=== PATIENT | female | born 1950 | race Caucasian/White ===

== ENCOUNTER 2025-03-15 23:37 | Inpatient (IN) ==
--- NOTE | 2025-03-16 00:16 | Emergency Department Note ---
Impression & Plan Gross hematuria ED Provider Note HISTORY OF PRESENT ILLNESS: Patient is a 74-year-old female presenting with gross hematuria. Patient had a transurethral bladder mass resection performed with urology on 03/15/2025. She reports that mid afternoon she started to have some blood-tinged urine. Reports that throughout the evening, she has had significant spasms in her suprapubic region and has been getting up to urinate every 15 minutes. She states that she has been urinating bright red and dark blood for the last few hours. Denies any lightheadedness or dizziness. Denies any chest pain or shortness of breath. She reports her urethra is very uncomfortable and painful. She is not on any anticoagulation or antiplatelet therapies. She reports she got very nervous after she continued to to urinate blood every 15 minutes. ROS: as above PHYSICAL EXAM: Constitutional: Patient appears in no acute distress. HENT: Head: Normocephalic and atraumatic. Eyes: EOMI, PERRL Mouth/Throat: Mucous membranes moist. Neck: Trachea midline. Neck supple. Cardiovascular: RRR, No murmurs, rubs or gallops. Intact distal pulses. Pulmonary/Chest: No respiratory distress. Breath sounds clear and equal bilaterally. No wheezes or rales. Abdominal: Abdomen soft, no tenderness, rebound or guarding. Musculoskeletal: No edema, tenderness or deformity noted. Skin: Warm and dry. No rash, erythema, pallor or cyanosis Psychiatric: Appropriate mood and affect for situation. Neurological: Alert and keenly responsive. CN II-XII grossly intact, moving all extremities equally and fully. MDM: - Vitals signs showed hypertension and tachycardia - History obtained via patient. History as above. - Chronic conditions affecting care: HTN; hypothyroidism; GERD; bladder tumor - Differential diagnoses include, but are not limited to: UTI; postoperative bleeding; ureteral stone; coagulopathy - Order placed for continuous cardiac monitoring. At this time, monitor showed rate of 83 bpm with normal sinus rhythm, per my interpretation. - External medical records reviewed. Operative note dated 03/15/2025 was reviewed. Patient had a transurethral section of a bladder tumor for malignant neoplasm of the bladder. - Did reach out to urologist on-call, Dr. Espinoza, at 01:00 on 03/16/2025. He responded at 01:34 and recommended that the three-way Lino be placed with gentle continuous bladder irrigation. Also requested that an ultrasound of the bladder be performed to ensure that there is not a large clot burden in the bladder. -Patient was given 2 mg IV morphine for pain control prior to Lino insertion. A 20 cymro three-way Lino catheter was placed by nursing staff and continuous bladder irrigation was performed. Initially had gross hematuria, but as the irrigation continued, the output from the Lino catheter is now a light pink- tinged color. - Laboratory workup interpreted by myself showed leukocytosis (WBC 20.20) with neutrophil predominance; PT/INR; slight hyponatremia (Na 134); normal lipase; anemia (Hgb 11.5 - down from 12.6 nine days ago) - UA showed significant amounts of blood and WBCs. Given patient's leukocytosis and hematuria, will empirically treat with IV Rocephin. - Type and screen obtained- - Renal and bladder ultrasound was obtained. - Discussion was had with caseworker protective services about patient's case and need for admission - Hospitalist consulted for admission [facility] ASSESSMENT AND PLAN: Diagnosis: Gross hematuria Plan: Admit Past Med/Surg History Problem List (Updated 03/16/25 @ 02:33 by Lizzeth Diane MD) Gross hematuria (Acute) Primary bladder malignant neoplasm Hematuria Osteoporosis Encounter for pre-operative examination History of melanoma Knee osteoarthritis GERD (gastroesophageal reflux disease) Anxiety Hypothyroidism Lumbar spinal stenosis Hypertension Medical History (Updated 03/16/25 @ 02:33 by Lizzeth Diane MD) Bladder tumor Arthritis Seasonal allergies Lumbar spinal stenosis History of melanoma Hypothyroidism Anxiety Hypertension GERD (gastroesophageal reflux disease) Surgical History H/O cystoscopy History of tonsillectomy History of tooth extraction Hx of melanoma excision History of esophagogastroduodenoscopy (EGD) Hx of colonoscopy Hx of foot surgery Right foot (D/t plantar fasciitis) Hx of Achilles tendon repair (2013) x3 (D/t rupture) 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) UJEANIE/Roman Ac History of left knee replacement (2020) H/O rotator cuff surgery Right H/O: hysterectomy Family History Father Anxiety Depression Hypertension Brother Diabetes Lung cancer Lung disease Hypertension Mother Lung cancer Other No family history of adverse response to anesthesia Social History Smoking Status: Former smoker Tobacco Type: Cigarettes Age Started Using Tobacco: 18; Age Quit Using Tobacco: 22; packs per day: 0.5; Second Hand Exposure: Yes (as a child); Do You Dip or Chew Tobacco: No; Hx Alcohol Use: No Preferred Language: Bruneian Communication Ability: Effective Soc Analyst Required: No Beliefs That Will Affect Care: None marital status: Current Living Situation: Spouse current occupational status: employed and retired How many Children do You have: 3 Feels Safe at Home: Yes Childhood Exposure to Second-Hand Smoke: Yes Diet: regular caffeine: Yes Dental Care, Regularly: Yes Physical Activity Frequency: 1-2 Times per Week Seatbelt Use: always Sunscreen Use: Yes Assistive Devices: Contacts and Glasses Allergies Allergies Allergy/AdvReac Type Severity Reaction Status Date / Time nickel AdvReac Mild Rash Verified 03/15/25 06:12 Home Meds Home Medications Medication Instructions Recorded Confirmed cetirizine 10 mg tablet (Aller-Kirk) 10 mg PO DAILY PRN allergies 12/04/23 03/15/25 ibuprofen 200 mg tablet 800 mg PO Q6H PRN Pain 05/26/24 03/15/25 calcium 600 mg (as 1 tab PO QAM 03/07/25 03/15/25 carbonate)-vitamin D3 5 mcg (200 unit) tablet duloxetine 60 mg capsule,delayed 60 mg PO QAM 03/07/25 03/15/25 release trazodone 50 mg tablet 50 mg PO HS PRN Sleep 03/07/25 03/15/25 vit A 7,160 unit-vit C 113 mg-vit 1 tab PO QAM 03/07/25 03/15/25 E 100 [id number]-bzdi-[id number] tablet Previous Rx's Medication Instructions Recorded lisinopril 20 mg tablet 20 mg PO QAM 90 days #90 tabs 08/25/24 levothyroxine 100 mcg tablet 100 mcg PO QAM #90 tabs 08/30/24 omeprazole 10 mg capsule,delayed 10 mg PO QAM 90 days #90 caps 02/15/25 release phenazopyridine 200 mg tablet 200 mg PO Q8H 6 doses #15 tabs 03/15/25 (Pyridium) sulfamethoxazole 800 1 tab PO BID #5 tabs 03/15/25 mg-trimethoprim 160 mg tablet (Bactrim DS) Results & Data (ED) Vital Signs Vital Signs - 24 hr 03/15/25 23:44 03/16/25 00:22 03/16/25 01:24 Temperature 37.1 C Temperature Source Oral Pulse Rate 116 H 97 H Pulse Rate [Apical] 83 Respiratory Rate 22 18 Respiratory Effort / Characteristics Non-Labored Spontaneous Respiratory Depth Normal Normal Blood Pressure 168/79 H Blood Pressure [Left Arm] 144/72 H Blood Pressure Mean 108 Blood Pressure Mean [Left Arm] 96 Pulse Oximetry 95 93 Oxygen Delivery Method Room Air Room Air Sepsis Recent Fever Within 48 Hours No Sepsis New/Unexplained Change in Mental Status No Sepsis Action Taken by Nursing No Action Required Laboratory Data 03/16/25 00:04 03/16/25 00:04 Lab Results 03/16/25 03/16/25 Range/Units 00:04 00:05 WBC 20.20 H (4.8-10.8) K/ul RBC 4.28 (4.20-5.40) M/uL Hgb 11.5 L (12.0-16.0) g/dl Hct 35.1 L (37.0-47.0) % MCV 82.0 (80.0-100.0) fL MCH 26.9 (25.0-34.0) pg MCHC 32.8 (32.0-36.0) g/dL RDW Std Deviation 41.7 (36.4-46.3) fL RDW Coeff of [place] 14.1 (11.5-14.5) % Plt Count 330 (130-400) K/uL MPV 11.4 (9.4-12.4) fL Immature Gran % (Auto) 0.8 % Neut % (Auto) 86.6 % Lymph % (Auto) 8.8 % [place] % (Auto) 3.7 % Eos % (Auto) 0.0 % Baso % (Auto) 0.1 % Neut # (Auto) 17.50 H (1.40-6.50) K/uL Lymph # (Auto) 1.77 (1.20-3.40) K/uL [place] # (Auto) 0.74 H (0.11-0.59) K/uL Eos # (Auto) 0.00 (0.00-0.50) K/uL Baso # (Auto) 0.02 (0.00-0.20) K/uL Immature Gran # (Auto) 0.17 (0.01-0.20) K/uL PT 10.9 (9.0-12.0) Seconds INR 1.0 (0.9-1.1) Sodium 134 L (136-145) mmol/L Potassium 3.8 (3.5-5.1) mmol/L Chloride 103 (98-107) mmol/L Carbon Dioxide 20 L (21-32) mmol/L Anion Gap 11 (3-11) BUN 17 (6-23) mg/dl Creatinine 0.91 (0.6-1.2) mg/dl Est Cr Clr Drug Dosing 60.1 ml/min eGFR 66.20 BUN/Creatinine Ratio 18.7 (10-20) Glucose 160 H (70-99(Fasting)) mg/dl Calcium 8.5 L (8.6-10.3) mg/dl Total Bilirubin 0.4 (0.2-1.0) mg/dl AST 45 H (13-39) U/L ALT 32 (7-52) U/L Alkaline Phosphatase 62 (34-104) U/L Total Protein 6.2 (6.0-8.3) gm/dl Albumin 3.8 (3.4-5.0) gm/dl Globulin 2.4 L (2.5-4.0) gm/dl Albumin/Globulin Ratio 1.6 (0.9-2) Lipase 10 L (11-82) U/L Urine Color See Comment Urine Appearance Turbid A (Clear) Urine pH Not Reportable Ur Specific [place] 1.025 (1.000-1.030) Urine Protein Not Reportable Urine Glucose (UA) Not Reportable Urine Ketones Not Reportable Urine Blood Not Reportable Urine Nitrite Not Reportable Urine Bilirubin Not Reportable Urine Urobilinogen Not Reportable Ur Leukocyte Esterase Not Reportable Urine RBC >20 H (0-2) /hpf Urine WBC 11-20 H (0-5) /hpf Ur Epithelial Cells 0-2 (0-2) /hpf Urine Bacteria None Seen (None Seen) Urine Comment Blood Type A Positive Antibody Screen NEGATIVE Administered Medications Discontinued Medications Ceftriaxone Sodium (Rocephin) 2,000 mg in 50 mls @ 100 mls/hr IV NOW STA Stop: 03/16/25 01:54 Last Infusion: 03/16/25 02:54 Dose: Infused Documented By: Admin: 03/16/25 02:06 Dose: 100 mls/hr Documented By: JEANETTE Morphine Sulfate (Morphine Sulfate 2 Mg/Ml Carp) 2 mg IV NOW STA Stop: 03/16/25 00:38 Last Admin: 03/16/25 01:04 Dose: 2 mg Documented By: JEANETTE Discharge Plan Visit Data Chief Complaint: Bleeding Stated Complaint: BLEEDING AFTER BLADDER SURG TODAY ED Provider: Lizzeth Diane Discharge Problem: Gross hematuria Condition: Fair Forms Stand Alone Forms: My [facility] Jump Prescriptions Prescriptions: No Action lisinopril 20 mg tablet 20 mg PO QAM 90 Days Qty: 90 3RF levothyroxine 100 mcg tablet 100 mcg PO QAM Qty: 90 3RF omeprazole 10 mg capsule,delayed release(DR/EC) 10 mg PO QAM 90 Days Qty: 90 1RF cetirizine [Aller-Kirk] 10 mg tablet 10 mg PO DAILY PRN (Reason: allergies) ibuprofen 200 mg Tablet 800 mg PO Q6H PRN (Reason: Pain) calcium carbonate-vitamin D3 600 mg-5 mcg (200 unit) Tablet 1 tab PO QAM vit A-vit C-vit S-vbsa-ndofte 7,160-113-100 njqz-fv-gutz Tablet 1 tab PO QAM duloxetine 60 mg capsule,delayed release(DR/EC) 60 mg PO QAM trazodone 50 mg Tablet 50 mg PO HS PRN (Reason: Sleep) sulfamethoxazole-trimethoprim [Bactrim DS] 800-160 mg tablet 1 tab PO BID Qty: 5 0RF phenazopyridine [Pyridium] 200 mg tablet 200 mg PO Q8H 0 Days Qty: 15 0RF Referrals Referrals: Charlene Ruiz MD [Primary Care Provider] -
[2025-03-16 00:35] LABS: Hematocrit (blood only) 35.1 % (37.0-47.0); Hemoglobin 11.5 g/dl (12.0-16.0); Immature Granulocytes # (auto) 0.17 K/uL (0.01-0.20); Immature Granulocytes % (auto) 0.8 %; Mean Corpuscular Hemoglobin 26.9 pg (25.0-34.0); Mean Corpuscular Volume 82.0 fL (80.0-100.0); Platelet Count 330 K/uL (130-400); RDW Standard Deviation 41.7 fL (36.4-46.3); Red Blood Count 4.28 M/uL (4.20-5.40); White Blood Count 20.20 K/ul (4.8-10.8)
[2025-03-16 00:52] LABS: Alanine Aminotransferase 32.0 U/L (7-52); Albumin Globulin Ratio 1.6 (0.9-2); Albumin Level 3.8 gm/dl (3.4-5.0); Alkaline Phosphatase 62.0 U/L (34-104); Anion Gap 11.0 (3-11); Bilirubin,Total 0.4 mg/dl (0.2-1.0); Blood Urea Nitrogen 17.0 mg/dl (6-23); Calcium 8.5 mg/dl (8.6-10.3); Carbon Dioxide 20.0 mmol/L (21-32); Chloride 103.0 mmol/L (98-107); Creatinine Clr Calc Pharmacy 60.1 ml/min; Globulin 2.4 gm/dl (2.5-4.0); Glucose 160.0 mg/dl (70-99(Fasting)); Lipase 10.0 U/L (11-82); Potassium 3.8 mmol/L (3.5-5.1); Sodium 134.0 mmol/L (136-145); Total Protein 6.2 gm/dl (6.0-8.3)
[2025-03-16 00:56] LABS: Appearance Urine Turbid (Clear)
[2025-03-16 01:00] LABS: Epithelial Cell Urine 0-2 /hpf (0-2)
[2025-03-16] MEDS: MoRPHine SULFATE 2 MG/ML CARP IV STA (01:04)
[2025-03-16 01:09] LABS: INR 1.0 (0.9-1.1); Prothrombin Time 10.9 Seconds (9.0-12.0)
[2025-03-16] MEDS: cefTRIAXone SODIUM 2,000 MG/50 ML BAG IV STA (02:06)
--- NOTE | 2025-03-16 03:14 | History & Physical Report ---
Date of Service March 16, 2025 Assessment & Plan (1) Gross hematuria: (2) Primary bladder malignant neoplasm: (3) S/P urological surgery: (4) Hypertension: Plan The patient is a 74-year-old female with a past medical history including primary bladder malignant neoplasm status post resection on 03/15/2025, osteoporosis, history of melanoma, GERD, anxiety, hypothyroidism, lumbar spinal stenosis, and hypertension. The patient presents to the emergency department with worsening gross hematuria. Patient underwent a transurethral bladder mass resection by urology on 03/15/2025. She reports that earlier in the afternoon she developed some blood-tinged urine, which continued to worsen throughout the evening. She later developed bladder spasms with discomfort of suprapubic region, and was getting up to urinate every 15 minutes. She became concerned and very nervous about frequency of urination, and a continuance of blood, and came to the emergency department for assessment. From the emergency department she received ceftriaxone 2 g IV, morphine 2 mg IV, Lino catheter was placed, and she was started on continuous bladder irrigation. She was then referred for evaluation for admission. Gross hematuria/status post transurethral bladder tumor resection- Surgery was performed on 03/15/2025 Follow urine culture sensitivity Continue empiric ceftriaxone 2 g IV daily N.p.o. except medications Continuous bladder irrigation NSS + KCl 20 mill equivalents at 100 mL/h x 1 L Zofran 4 mg IV every 6 hours as needed Acetaminophen 1 g IV every 8 hours as needed for mild pain or fever Morphine sulfate 2 mg IV every 3 hours as needed for moderate pain Morphine sulfate 4 mg IV every 3 hours as needed for severe pain Discontinue Bactrim DS twice daily while inpatient Consult urology already placed by the ED Hypertension- Hold lisinopril Hydralazine 10 mg IV every 4 hours as needed for systolic blood pressure greater than 160 Anxiety- Continue duloxetine 60 mg every morning, and trazodone 50 mg p.o. at bedtime as needed GERD- Hold omeprazole Pantoprazole 40 mg IV every morning Hypothyroidism- Continue levothyroxine 100 mcg every morning History of Present Illness Chief Complaint: The patient presents to the emergency department with worsening gross hematuria. Patient underwent a transurethral bladder mass resection by urology on 03/15/2025. She reports that earlier in the afternoon she developed some blood- tinged urine, which continued to worsen throughout the evening. She later developed bladder spasms with discomfort of suprapubic region, and was getting up to urinate every 15 minutes. She became concerned and very nervous about frequency of urination, and a continuance of blood, and came to the emergency department for assessment. Primary Care Provider: Charlene Ruiz MD The patient is a 74-year-old female with a past medical history including primary bladder malignant neoplasm status post resection on 03/15/2025, osteoporosis, history of melanoma, GERD, anxiety, hypothyroidism, lumbar spinal stenosis, and hypertension. The patient presents to the emergency department with worsening gross hematuria. Patient underwent a transurethral bladder mass resection by urology on 03/15/2025. She reports that earlier in the afternoon she developed some blood-tinged urine, which continued to worsen throughout the evening. She later developed bladder spasms with discomfort of suprapubic region, and was getting up to urinate every 15 minutes. She became concerned and very nervous about frequency of urination, and a continuance of blood, and came to the emergency department for assessment. From the emergency department she received ceftriaxone 2 g IV, morphine 2 mg IV, Lino catheter was placed, and she was started on continuous bladder irrigation. She was then referred for evaluation for admission. Allergies Allergy/AdvReac Type Severity Reaction Status Date / Time nickel AdvReac Mild Rash Verified 03/15/25 06:12 Home Medications Medication Instructions Recorded Confirmed Type cetirizine 10 mg tablet (Aller-Kirk) 10 mg PO DAILY PRN allergies 12/04/23 03/15/25 History ibuprofen 200 mg tablet 800 mg PO Q6H PRN Pain 05/26/24 03/15/25 History lisinopril 20 mg tablet 20 mg PO QAM 90 days #90 tabs 08/25/24 03/15/25 Rx levothyroxine 100 mcg tablet 100 mcg PO QAM #90 tabs 08/30/24 03/15/25 Rx omeprazole 10 mg capsule,delayed 10 mg PO QAM 90 days #90 caps 02/15/25 03/15/25 Rx release calcium 600 mg (as 1 tab PO QAM 03/07/25 03/15/25 History carbonate)-vitamin D3 5 mcg (200 unit) tablet duloxetine 60 mg capsule,delayed 60 mg PO QAM 03/07/25 03/15/25 History release trazodone 50 mg tablet 50 mg PO HS PRN Sleep 03/07/25 03/15/25 History vit A 7,160 unit-vit C 113 mg-vit 1 tab PO QAM 03/07/25 03/15/25 History E 100 [id number]-[id number] tablet phenazopyridine 200 mg tablet 200 mg PO Q8H 6 doses #15 tabs 03/15/25 Rx (Pyridium) sulfamethoxazole 800 1 tab PO BID #5 tabs 03/15/25 Rx mg-trimethoprim 160 mg tablet (Bactrim DS) Past Med/Surg History Problem List (Updated 03/16/25 @ 02:33 by Lizzeth Diane MD) S/P urological surgery Gross hematuria (Acute) Primary bladder malignant neoplasm Hematuria Osteoporosis Encounter for pre-operative examination History of melanoma Knee osteoarthritis GERD (gastroesophageal reflux disease) Anxiety Hypothyroidism Lumbar spinal stenosis Hypertension Medical History (Updated 03/16/25 @ 02:33 by Lizzeth Diane MD) Bladder tumor Arthritis Seasonal allergies Lumbar spinal stenosis History of melanoma Hypothyroidism Anxiety Hypertension GERD (gastroesophageal reflux disease) Surgical History (Updated 03/16/25 @ 03:25 by James Rivera MD) H/O cystoscopy History of tonsillectomy History of tooth extraction Hx of melanoma excision History of esophagogastroduodenoscopy (EGD) Hx of colonoscopy Hx of foot surgery Right foot (D/t plantar fasciitis) Hx of Achilles tendon repair (2013) x3 (D/t rupture) 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) UOC/Roman Ac History of left knee replacement (2020) H/O rotator cuff surgery Right H/O: hysterectomy Family History Father Anxiety Depression Hypertension Brother Diabetes Lung cancer Lung disease Hypertension Mother Lung cancer Other No family history of adverse response to anesthesia Social History Smoking Status: Former smoker Tobacco Type: Cigarettes Age Started Using Tobacco: 18; Age Quit Using Tobacco: 22; packs per day: 0.5; Second Hand Exposure: Yes (as a child); Do You Dip or Chew Tobacco: No; Hx Alcohol Use: No Preferred Language: Malawian Communication Ability: Effective Robotic Toy Inventor Required: No Beliefs That Will Affect Care: None marital status: Current Living Situation: Spouse current occupational status: employed and retired How many Children do You have: 3 Feels Safe at Home: Yes Childhood Exposure to Second-Hand Smoke: Yes Diet: regular caffeine: Yes Dental Care, Regularly: Yes Physical Activity Frequency: 1-2 Times per Week Seatbelt Use: always Sunscreen Use: Yes Assistive Devices: Contacts and Glasses Review of Systems Review of Systems: The patient denies chest pain, palpitations, shortness of breath, dyspnea on exertion, cough, lower extremity swelling, sore throat, fevers, chills, sweats, nausea, vomiting, diarrhea , constipation, blood in stool, dysuria, lightheadedness, dizziness, headache, memory loss, loss of consciousness, rash, imbalance, focal weakness, numbness or tingling in arms or legs, generalized arthralgias or myalgias, back or neck pain, or night sweats. The review of systems is otherwise negative other than for that already noted above, and at least 10 systems have been reviewed. Physical Exam Physical Exam: The patient is awake, alert and oriented 3, well developed and well nourished, normocephalic and atraumatic, lying in bed and in no acute distress. HEENT--PERRL, EOMI, mucous membranes and oropharynx mildly dry. Neck--supple. No JVD. No bruits. Thyroid normal, trachea midline, no adenopathy. Heart--normal S1 and S2. No murmurs, rubs or gallops. Lungs--clear bilaterally, no respiratory distress, no accessory muscle use. Abdomen--normal bowel sounds and soft. Nontender. Nondistended Extremities--no cyanosis or clubbing. No edema. There are good distal pulses b/l. Dermatologic--normal skin turgor, normal color, no abnormal lymph nodes, no rash. Neurologic--cranial nerves II through XII grossly intact. Rheumatologic--normal range of motion. Psychiatric--normal affect. Results & Data Results & Data Vital Signs (Past 12 Hours) Vital Signs Temp Pulse Pulse Resp BP BP Pulse Ox 03/16/25 01:24 83 18 144/72 H 93 03/16/25 00:22 97 H 03/15/25 23:44 37.1 C 116 H 22 168/79 H 95 O2 Del Method 03/16/25 01:24 Room Air 03/16/25 00:22 03/15/25 23:44 Room Air Laboratory Results Laboratory Results WBC 20.20 K/ul (4.8-10.8) H 03/16/25 00:04 RBC 4.28 M/uL (4.20-5.40) 03/16/25 00:04 Hgb 11.5 g/dl (12.0-16.0) L 03/16/25 00:04 Hct 35.1 % (37.0-47.0) L 03/16/25 00:04 MCV 82.0 fL (80.0-100.0) 03/16/25 00:04 MCH 26.9 pg (25.0-34.0) 03/16/25 00:04 MCHC 32.8 g/dL (32.0-36.0) 03/16/25 00:04 RDW Std Deviation 41.7 fL (36.4-46.3) 03/16/25 00:04 RDW Coeff of Jo Ann 14.1 % (11.5-14.5) 03/16/25 00:04 Plt Count 330 K/uL (130-400) 03/16/25 00:04 MPV 11.4 fL (9.4-12.4) 03/16/25 00:04 Immature Gran % (Auto) 0.8 % 03/16/25 00:04 Neut % (Auto) 86.6 % 03/16/25 00:04 Lymph % (Auto) 8.8 % 03/16/25 00:04 [place] % (Auto) 3.7 % 03/16/25 00:04 Eos % (Auto) 0.0 % 03/16/25 00:04 Baso % (Auto) 0.1 % 03/16/25 00:04 Neut # (Auto) 17.50 K/uL (1.40-6.50) H 03/16/25 00:04 Lymph # (Auto) 1.77 K/uL (1.20-3.40) 03/16/25 00:04 [place] # (Auto) 0.74 K/uL (0.11-0.59) H 03/16/25 00:04 Eos # (Auto) 0.00 K/uL (0.00-0.50) 03/16/25 00:04 Baso # (Auto) 0.02 K/uL (0.00-0.20) 03/16/25 00:04 Immature Gran # (Auto) 0.17 K/uL (0.01-0.20) 03/16/25 00:04 PT 10.9 Seconds (9.0-12.0) 03/16/25 00:04 INR 1.0 (0.9-1.1) 03/16/25 00:04 Sodium 134 mmol/L (136-145) L 03/16/25 00:04 Potassium 3.8 mmol/L (3.5-5.1) 03/16/25 00:04 Chloride 103 mmol/L (98-107) 03/16/25 00:04 Carbon Dioxide 20 mmol/L (21-32) L 03/16/25 00:04 Anion Gap 11 (3-11) 03/16/25 00:04 BUN 17 mg/dl (6-23) 03/16/25 00:04 Creatinine 0.91 mg/dl (0.6-1.2) 03/16/25 00:04 Est Cr Clr Drug Dosing 60.1 ml/min 03/16/25 00:04 eGFR 66.20 03/16/25 00:04 BUN/Creatinine Ratio 18.7 (10-20) 03/16/25 00:04 Glucose 160 mg/dl (70-99(Fasting)) H 03/16/25 00:04 Calcium 8.5 mg/dl (8.6-10.3) L 03/16/25 00:04 Total Bilirubin 0.4 mg/dl (0.2-1.0) 03/16/25 00:04 AST 45 U/L (13-39) H 03/16/25 00:04 ALT 32 U/L (7-52) 03/16/25 00:04 Alkaline Phosphatase 62 U/L (34-104) 03/16/25 00:04 Total Protein 6.2 gm/dl (6.0-8.3) 03/16/25 00:04 Albumin 3.8 gm/dl (3.4-5.0) 03/16/25 00:04 Globulin 2.4 gm/dl (2.5-4.0) L 03/16/25 00:04 Albumin/Globulin Ratio 1.6 (0.9-2) 03/16/25 00:04 Lipase 10 U/L (11-82) L 03/16/25 00:04 Urine Color See Comment 03/16/25 00:05 Urine Appearance Turbid (Clear) A 03/16/25 00:05 Urine pH Not Reportable 03/16/25 00:05 Ur Specific [place] 1.025 (1.000-1.030) 03/16/25 00:05 Urine Protein Not Reportable 03/16/25 00:05 Urine Glucose (UA) Not Reportable 03/16/25 00:05 Urine Ketones Not Reportable 03/16/25 00:05 Urine Blood Not Reportable 03/16/25 00:05 Urine Nitrite Not Reportable 03/16/25 00:05 Urine Bilirubin Not Reportable 03/16/25 00:05 Urine Urobilinogen Not Reportable 03/16/25 00:05 Ur Leukocyte Esterase Not Reportable 03/16/25 00:05 Urine RBC >20 /hpf (0-2) H 03/16/25 00:05 Urine WBC 11-20 /hpf (0-5) H 03/16/25 00:05 Ur Epithelial Cells 0-2 /hpf (0-2) 03/16/25 00:05 Urine Bacteria None Seen (None Seen) 03/16/25 00:05 Urine Comment 03/16/25 00:05 Blood Type A Positive 03/16/25 00:04 Antibody Screen NEGATIVE 03/16/25 00:04 Code Status & VTE Plan Code Status Full code VTE Prophylaxis Plan VTE Prophylaxis will be ordered: Yes PG Care Time/CCT Total # of Minutes Spent Total Time Spent with Patient: Total time spent is greater than 50% in coordination of care (as documented) at patient's floor/unit and/or counseling patient: Coding Level of Care Code 57933 INT INP/OBS CARE 3/75MIN Diagnoses Gross hematuria R31.0 Primary bladder malignant neoplasm C67.9 S/P urological surgery Z98.890 Hypertension I10
[2025-03-16] MEDS ORDERED: MoRPHine SULFATE 2 MG/ML CARP IV PRN (03:27)
[2025-03-16] MEDS ORDERED: MoRPHine SULFATE 4 MG/ML 1 ML CARP\\VIAL IV PRN (03:27)
--- NOTE | 2025-03-16 03:57 | Ultrasound Report ---
EXAM: US renal/blad retro comp CLINICAL HISTORY: PT HAD BLADDER MASSES REMOVED 03/15/25. NOW HAVING GROSS HEMATURIA. CURRENTLY HAS A THREE-WAY RICHMOND IN PLACE FOR GENTLE CONTINUOUS BLADDER IRRIGATION. TECHNIQUE: A renal ultrasound was performed using grayscale and color Doppler imaging. COMPARISON: No previous studies are available for comparison. FINDINGS: EXAM LIMITED BY INCREASED BODY HABITUS, BMI 37.9, AND INCREASED BOWEL GAS. Right Kidney: The right kidney measures 10.1 x 4.1 x 2.89 cm. vol 62.71 ml, limited views. No cyst, hydronephrosis, calculi, or masses were identified. Renal parenchymal echogenicity is normal. Cortical thickness: Within normal. The renal pelvis is within normal. On color Doppler, normal vascularity of the kidneys is noted. Left Kidney: The left kidney measures 10.92 x 5.95 x 4.4 cm. vol 149.61 ml, limited views. No cyst, hydronephrosis, calculi, or masses were identified. Renal parenchymal echogenicity is normal. Cortical thickness: Within normal. The renal pelvis is within normal. On color Doppler, normal vascularity of the kidneys is noted. Urinary bladder: Richmond's catheter is noted within the urinary bladder; echogenic material is seen surrounding it. possibly clot versus effect from three-way Richmond's irrigation. bladder measures 6.95 x 5.15 x 8.94 cm, BLADDER VOLUME AMOS APPROX 224mL . URINE JETS NONVISUALISED DURING EVALUATION. IMPRESSION: Richmond's catheter is noted within the urinary bladder, and echogenic material is seen surrounding it. possibly clot versus effect from three-way Richmond's irrigation. No obvious renal abnormality was found given the limitations of the study. Electronically signed by Osiel Mcnamara 03-16-2025 03:57 AM
[2025-03-16] MEDS ORDERED: ACETAMINOPHEN 1000 MG/100 ML IV IV PRN (04:09)
[2025-03-16] MEDS ORDERED: ONDANSETRON INJ 2 MG/ML 2 ML VIAL IV PRN (04:09)
[2025-03-16 05:09] LABS: Hematocrit (blood only) 31.1 % (37.0-47.0); Hemoglobin 10.5 g/dl (12.0-16.0); Immature Granulocytes # (auto) 0.09 K/uL (0.01-0.20); Immature Granulocytes % (auto) 0.5 %; Mean Corpuscular Hemoglobin 27.9 pg (25.0-34.0); Mean Corpuscular Volume 82.7 fL (80.0-100.0); Platelet Count 259 K/uL (130-400); RDW Standard Deviation 42.1 fL (36.4-46.3); Red Blood Count 3.76 M/uL (4.20-5.40); White Blood Count 17.03 K/ul (4.8-10.8)
[2025-03-16 05:25] LABS: Albumin Level 3.5 gm/dl (3.4-5.0); Anion Gap 6.0 (3-11); Blood Urea Nitrogen 14.0 mg/dl (6-23); Calcium 8.5 mg/dl (8.6-10.3); Carbon Dioxide 26.0 mmol/L (21-32); Chloride 106.0 mmol/L (98-107); Creatinine Clr Calc Pharmacy 62.9 ml/min; Glucose 169.0 mg/dl (70-99(Fasting)); Potassium 4.2 mmol/L (3.5-5.1); Sodium 138.0 mmol/L (136-145)
[2025-03-16] MEDS: NSS + 20MEQ KCL 20 MEQ/1,000 ML BAG IV SCH (05:27)
[2025-03-16] MEDS: LEVOTHYROXINE SODIUM 100 MCG TABLET PO SCH (07:31)
[2025-03-16] MEDS: PANTOprazole 40 MG/10 ML SYR IV SCH (08:18)
--- NOTE | 2025-03-16 10:41 | Urology Consultation ---
Date of Consultation March 16, 2025 Assessment & Plan (1) S/P urological surgery: Afebrile hd stable 74F with gross hematuria clot retention after TURBT yesterday. Catheter in place with CBI now draining well urine manageable. - titrate cbi can stop this afternoon then will reassess - maintain garcia, will continue to monitor consider dc tomorrow morning if urine clear - agree with empiric abx - mm pain control pyridium not helping much - reccomend bowel regimen for soft daily BM - will continue to follow (2) Hematuria: (3) Bladder tumor: History of Present Illness Reason for Consultation: hematuria clot retention, postop OP TURBT Attending Physician: Rex Adkins MD History of Present Illness Pleasant 74F seen or hematuria clot retention after extensive TURBT 03/15 for multiple bladder tumors. Was initially doing well urine pink lemonade therefore catheter removed and patient discharged, at home noted had Bm with some straining and was walking a little bit but urine became progressively dark and eventually unable to void with intense pain eventually passed clots with some relief but very concerned with hematuria and proceeded to Er where [address] catheter placed and slow drip CBI started, denies fevers chills nausea or emesis feels much better with catheter though some burning noted not not feel catheter draining poorly or urge to void Allergies Allergy/AdvReac Type Severity Reaction Status Date / Time nickel AdvReac Mild Rash Verified 03/15/25 06:12 Home Medications Medication Instructions Recorded Confirmed Type cetirizine 10 mg tablet (Aller-Kirk) 10 mg PO DAILY PRN allergies 12/04/23 03/16/25 History ibuprofen 200 mg tablet 800 mg PO Q6H PRN Pain 05/26/24 03/16/25 History lisinopril 20 mg tablet 20 mg PO QAM 90 days #90 tabs 08/25/24 03/16/25 Rx levothyroxine 100 mcg tablet 100 mcg PO QAM #90 tabs 08/30/24 03/16/25 Rx omeprazole 10 mg capsule,delayed 10 mg PO QAM 90 days #90 caps 02/15/25 03/16/25 Rx release calcium 600 mg (as 1 tab PO QAM 03/07/25 03/16/25 History carbonate)-vitamin D3 5 mcg (200 unit) tablet duloxetine 60 mg capsule,delayed 60 mg PO QAM 03/07/25 03/16/25 History release trazodone 50 mg tablet 50 mg PO HS PRN Sleep 03/07/25 03/16/25 History phenazopyridine 200 mg tablet 200 mg PO Q8H 6 doses #15 tabs 03/15/25 03/16/25 Rx (Pyridium) sulfamethoxazole 800 1 tab PO BID #5 tabs 03/15/25 03/16/25 Rx mg-trimethoprim 160 mg tablet (Bactrim DS) Patient History Medical History (Updated 03/16/25 @ 02:33 by Lizzeth Diane MD) Bladder tumor Arthritis Seasonal allergies Lumbar spinal stenosis History of melanoma Hypothyroidism Anxiety Hypertension GERD (gastroesophageal reflux disease) Surgical History (Updated 03/16/25 @ 03:25 by James Rivera MD) H/O cystoscopy History of tonsillectomy History of tooth extraction Hx of melanoma excision History of esophagogastroduodenoscopy (EGD) Hx of colonoscopy Hx of foot surgery Right foot (D/t plantar fasciitis) Hx of Achilles tendon repair (2013) x3 (D/t rupture) 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) UOC/Roman Ac History of left knee replacement (2020) H/O rotator cuff surgery Right H/O: hysterectomy Family History Father Anxiety Depression Hypertension Brother Diabetes Lung cancer Lung disease Hypertension Mother Lung cancer Other No family history of adverse response to anesthesia Social History Smoking Status: Former smoker Tobacco Type: Cigarettes Age Started Using Tobacco: 18; Age Quit Using Tobacco: 22; packs per day: 0.5; Second Hand Exposure: Yes (as a child); Do You Dip or Chew Tobacco: No; Hx Alcohol Use: No Hx Substance Use: No Preferred Language: Sinhala Communication Ability: Effective Pilot Captain Required: No Beliefs That Will Affect Care: None marital status: Current Living Situation: Spouse current occupational status: employed and retired How many Children do You have: 3 Feels Safe at Home: Yes Safety Concerns: Feels Safe At This Time Childhood Exposure to Second-Hand Smoke: Yes Diet: regular caffeine: Yes Dental Care, Regularly: Yes Physical Activity Frequency: 1-2 Times per Week Seatbelt Use: always Sunscreen Use: Yes Assistive Devices: Contacts and Glasses Physical Exam Physical Exam: Gen: NAD Psych: Alert and Oriented Abd: Nontender nondistended : catheter in place 3way, cbi slow drip pink lemonade urine Results & Data Vital Signs (Past 12 Hours) Vital Signs Temp Pulse Pulse Resp BP BP Pulse Ox 03/16/25 08:15 79 18 136/60 96 03/16/25 06:05 37.2 C 82 20 151/63 H 95 03/16/25 04:30 83 20 143/61 H 92 03/16/25 04:00 78 18 152/76 H 94 03/16/25 03:00 17 162/60 H 92 03/16/25 01:24 83 18 144/72 H 93 03/16/25 00:22 97 H 03/15/25 23:44 37.1 C 116 H 22 168/79 H 95 O2 Del Method 03/16/25 08:15 Room Air 03/16/25 06:05 Room Air 03/16/25 04:30 Room Air 03/16/25 04:00 Room Air 03/16/25 03:00 03/16/25 01:24 Room Air 03/16/25 00:22 03/15/25 23:44 Room Air PG Care Time/CCT Total # of Minutes Spent Total Time Spent with Patient: Total time spent is greater than 50% in coordination of care (as documented) at patient's floor/unit and/or counseling patient: Coding Level of Care Code 97308 IN/OBS CONSULT LVL 2,35M Diagnoses S/P urological surgery Z98.890 Hematuria R31.9 Bladder tumor D49.4
[2025-03-16] MEDS: POLYETHYLENE (MIRALAX) 17 GM PACK PO SCH (11:17)
[2025-03-16] MEDS: cefTRIAXone SODIUM 2,000 MG/50 ML BAG IV SCH (16:44)
[2025-03-17] MEDS: COUGH DROP (SUGAR FREE) LOZ 24 LOZ/1 BOX BUCCAL ONE (06:18)
[2025-03-17 07:36] LABS: Albumin Level 3.2 gm/dl (3.4-5.0); Anion Gap 6.0 (3-11); Calcium 7.8 mg/dl (8.6-10.3); Carbon Dioxide 26.0 mmol/L (21-32); Chloride 108.0 mmol/L (98-107); Magnesium 2.1 mg/dl (1.7-2.4); Potassium 4.1 mmol/L (3.5-5.1); Sodium 140.0 mmol/L (136-145)
[2025-03-17 07:42] LABS: Blood Urea Nitrogen 13.0 mg/dl (6-23); Creatinine Clr Calc Pharmacy 65.2 ml/min; Glucose 110.0 mg/dl (70-99(Fasting))
--- NOTE | 2025-03-17 08:03 | Urology Progress Note ---
Date of Service March 17, 2025 Assessment & Plan (1) S/P urological surgery: Plan: Afebrile hd stable 74F with gross hematuria clot retention after TURBT 03/15. Catheter in place with CBI now clamped but did have episode clot retention this AM now draining well urine light. - stop CBI will reassess catheter in afternoon after patient walks some, if urine reassuring would irirgate final time to ensure no clots and potentially remove garcia, if patient able to void after garcia removed consider dc this afternoon - please obtain bladder US to check for clot burden - maintain garcia, - agree with empiric abx, no further abx indicated on discharge from [facility] - mm pain control pyridium not helping much, please prescribe several tablets oxycodone 5 mg patient very concerned will have uncontrolled pain at home - recommend bowel regimen for soft daily BM - care per primary team much appreciated please call with questions - will continue to follow (2) Gross hematuria: (3) Primary bladder malignant neoplasm: Admission and Anticipated Discharge Date Admission Date: March 16, 2025 Subjective doing ok overnight, did have further episode of clot retention this am pain ful and required irrigation, despite that urine much clearer CBI bascially clamped, pain generally under control walking some but no BM yet for past few days Physical Exam Physical Exam: Gen: NAD Psych: Alert and Oriented Abd: Nontender nondistended : 3 way catheter in place pink lemonade urine cbi clamped Results & Data Vital Signs (Past 12 Hours) Vital Signs Temp Pulse Resp BP Pulse Ox O2 Del Method 03/16/25 23:35 36.7 C 75 16 133/73 97 Room Air Laboratory Results labs reivewed PG Care Time/CCT Total # of Minutes Spent Total Time Spent with Patient: Total time spent is greater than 50% in coordination of care (as documented) at patient's floor/unit and/or counseling patient: Coding Level of Care Code 77870 SUB INP/OBS CARE 2/35MIN Diagnoses S/P urological surgery Z98.890 Gross hematuria R31.0 Primary bladder malignant neoplasm C67.9
[2025-03-17 09:17] LABS: Hematocrit (blood only) 30.3 % (37.0-47.0); Hemoglobin 9.8 g/dl (12.0-16.0); Immature Granulocytes # (auto) 0.07 K/uL (0.01-0.20); Immature Granulocytes % (auto) 0.8 %; Mean Corpuscular Hemoglobin 27.7 pg (25.0-34.0); Mean Corpuscular Volume 85.6 fL (80.0-100.0); Platelet Count 206 K/uL (130-400); RDW Standard Deviation 45.4 fL (36.4-46.3); Red Blood Count 3.54 M/uL (4.20-5.40); White Blood Count 9.15 K/ul (4.8-10.8)
--- NOTE | 2025-03-17 14:29 | Ultrasound Report ---
US retro bladder ltd HISTORY: 74 years-old Female hematuria COMPARISON: Ultrasound 03/16/2025, CT abdomen and pelvis 02/27/2025 TECHNIQUE: Multiple real-time images of the urinary bladder were obtained assessing grayscale appeara nce FINDINGS: A Lino catheter is noted. Echogenic material is noted within the dependent urinary bladder measuring up to approximately 9 cm in length. It is difficult to measure change from yesterday's study as the bladder was mostly decompressed on the prior ultrasound. IMPRESSION: Persistent probable blood products in the dependent urinary bladder. ACT 112: Negative or not required by law. The above report was generated using voice recognition software. It may contain grammatical, syntax o r spelling errors. Electronically signed by: Noel Price M.D. 03/17/2025 2:27 PM
[2025-03-17 14:36] VITALS: RESP 16
[2025-03-17] MEDS: SENNA 8.6 MG TAB PO SCH (17:55)
--- NOTE | 2025-03-17 20:21 | Hospitalist Progress Note ---
Date of Service March 17, 2025 Assessment & Plan (1) Gross hematuria: (2) Primary bladder malignant neoplasm: (3) S/P urological surgery: (4) Hypertension: Plan 74yo female with primary bladder malignancy, s/p TURBT on 03/15/2025, osteoporosis, history of melanoma, GERD, anxiety, hypothyroidism, lumbar spinal stenosis, and hypertension. She presented to the ER several hours after discharge from her TURBT with severe gross hematuria. Upon admission a 3-way garcia was placed and CBI was initiated for the hematuria. #Gross hematuria/s/p TURBT - -defer management to urology - appreciate their assistance -CBI shut off earlier today -urology advises watching carefully overnight for clot formation, garcia obstruction, etc. -recheck CBC am #acute blood loss anemia - -2nd to above -recheck CBC am #Hypertension - -Hold lisinopril again today -follow BMP and BPs -resume as necessary #constipation - -add senna -increase miralax to BID dosing #Anxiety - -Continue duloxetine 60 mg every morning -Continue trazodone 50 mg p.o. at bedtime as needed #GERD- -PPI, change IV to PO formulation #Hypothyroidism - -Continue levothyroxine 100 mcg every morning -TSH 2.7 in January DVT Proph - chemical means contraindicated due to hematuria ambulation updated at bedside Admission and Anticipated Discharge Date Admission Date: March 16, 2025 Subjective CBI clamped earlier today since clamping no clot retention leading to need for hand irrigation urine still with gross hematuria but mild she denies any suprapubic discomfort, nausea or emesis is constipated - no BM since admission eating well no dyspnea at bedside Review of Systems Review of Systems: gen - no fevers or chills cv - no chest pain pulm - no cough or dyspnea Physical Exam Physical Exam: gen - pleasant, NAD neck - no JVD mouth - MMM heart - RRR, s1 s2, no murmur lungs - CTA b/l abd - soft NT ND BS+; bladder not palpable ext - no edema, pulses 2+ b/l legs psych - a/o x 3 Results & Data Results & Data Vital Signs (Past 12 Hours) Vital Signs Temp Pulse Resp BP Pulse Ox O2 Del Method 03/17/25 14:36 37.3 C 108 H 16 169/73 H 94 Room Air 03/17/25 08:48 36.6 C 77 18 149/70 H 96 Room Air Laboratory Results Laboratory Results - last 24 hr 03/17/25 03/17/25 07:04 08:45 WBC Cancelled 9.15 RBC Cancelled 3.54 L Hgb Cancelled 9.8 L Hct Cancelled 30.3 L MCV Cancelled 85.6 MCH Cancelled 27.7 MCHC Cancelled 32.3 RDW Std Deviation Cancelled 45.4 RDW Coeff of Jo Ann Cancelled 14.6 H Plt Count Cancelled 206 MPV Cancelled 11.1 Immature Gran % (Auto) Cancelled 0.8 Neut % (Auto) Cancelled 65.9 Lymph % (Auto) Cancelled 26.7 [place] % (Auto) Cancelled 6.0 Eos % (Auto) Cancelled 0.4 Baso % (Auto) Cancelled 0.2 Neut # (Auto) Cancelled 6.03 Lymph # (Auto) Cancelled 2.44 [place] # (Auto) Cancelled 0.55 Eos # (Auto) Cancelled 0.04 Baso # (Auto) Cancelled 0.02 Immature Gran # (Auto) Cancelled 0.07 Absolute Nucleated RBC Cancelled Nucleated RBC % (auto) Cancelled Neutrophils % (Manual) Cancelled Band Neutrophils % Cancelled Lymphocytes % (Manual) Cancelled Prolymphocyte % Cancelled Reactive Lymphs % (Man) Cancelled Monocytes % (Manual) Cancelled Eosinophils % (Manual) Cancelled Basophils % (Manual) Cancelled Metamyelocytes % (Man) Cancelled Myelocytes % (Man) Cancelled Promyelocytes % (Man) Cancelled Blast Cells % (Manual) Cancelled Plasma Cell % (Manual) Cancelled Other Cells % Cancelled Nucleated RBC % Cancelled Neutrophils # (Manual) Cancelled Band Neutrophils # Cancelled Total Absolute Neuts Cancelled Lymphocytes # (Manual) Cancelled Prolymphocyte # Cancelled Reactive Lymphs # Cancelled Total Abs Lymphocytes Cancelled Monocytes # (Manual) Cancelled Eosinophils # (Manual) Cancelled Basophils # (Manual) Cancelled Metamyelocytes # (Man) Cancelled Myelocytes # (Manual) Cancelled Promyelocytes # (Man) Cancelled Blast Cells # (Man) Cancelled Plasma Cell # (Manual) Cancelled Other Cells # Cancelled Nucleated RBCs # (Man) Cancelled Hypersegmented Neuts Cancelled Hyposegmented Neuts Cancelled Hypogranular Neuts Cancelled Large Granular Lymphs Cancelled # Lrg Granular Lymphs Cancelled Hairy Cells Cancelled Smudge Cells Cancelled Toxic Granulation Cancelled Toxic Vacuolation Cancelled Dohle Bodies Cancelled Chanel Rods Cancelled Platelet Estimate Cancelled Hypogranular Platelets Cancelled Giant Platelets Cancelled Platelet Satelliting Cancelled RBC Morphology Cancelled Polychromasia Cancelled Hypochromasia Cancelled Poikilocytosis Cancelled Basophilic Stippling Cancelled Anisocytosis Cancelled Microcytosis Cancelled Macrocytosis Cancelled Spherocytes Cancelled Pappenheimer Bodies Cancelled Sickle Cells Cancelled Target Cells Cancelled Tear Drop Cells Cancelled Ovalocytes Cancelled Stomatocytes Cancelled [place] Bodies Cancelled Echinocytes Cancelled Acanthocytes (Spur) Cancelled Rouleaux Cancelled RBC Agglutinates Cancelled Schistocytes Cancelled Sezary Cell Cancelled Sodium 140 Potassium 4.1 Chloride 108 H Carbon Dioxide 26 Anion Gap 6 BUN 13 Creatinine 0.84 Est Cr Clr Drug Dosing 65.2 eGFR 72.87 BUN/Creatinine Ratio 15.5 Glucose 110 H Calcium 7.8 L Phosphorus 2.6 Magnesium 2.1 Albumin 3.2 L Blood Parasites ID Cancelled Diagnostic Findings Urine culture negative PG Care Time/CCT Total # of Minutes Spent Total Time Spent with Patient: Total time spent is greater than 50% in coordination of care (as documented) at patient's floor/unit and/or counseling patient: Coding Level of Care Code 73661 SUB INP/OBS CARE 2/35MIN Diagnoses Gross hematuria R31.0 Primary bladder malignant neoplasm C67.9 S/P urological surgery Z98.890 Hypertension I10
[2025-03-17] MEDS: POLYETHYLENE (MIRALAX) 17 GM PACK PO SCH (22:11)
[2025-03-18 07:01] VITALS: BP 138/68; PULSE 74; TEMP 98.8; O2SAT 95
[2025-03-18 07:01] LABS: Hematocrit (blood only) 30.8 % (37.0-47.0); Hemoglobin 10.0 g/dl (12.0-16.0); Immature Granulocytes # (auto) 0.08 K/uL (0.01-0.20); Immature Granulocytes % (auto) 1.1 %; Mean Corpuscular Hemoglobin 27.0 pg (25.0-34.0); Mean Corpuscular Volume 83.2 fL (80.0-100.0); Platelet Count 202 K/uL (130-400); RDW Standard Deviation 43.9 fL (36.4-46.3); Red Blood Count 3.70 M/uL (4.20-5.40); White Blood Count 7.15 K/ul (4.8-10.8)
[2025-03-18 07:45] LABS: Albumin Level 3.4 gm/dl (3.4-5.0); Anion Gap 5.0 (3-11); Calcium 8.1 mg/dl (8.6-10.3); Carbon Dioxide 29.0 mmol/L (21-32); Chloride 106.0 mmol/L (98-107); Potassium 4.1 mmol/L (3.5-5.1); Sodium 140.0 mmol/L (136-145)
[2025-03-18 07:52] LABS: Blood Urea Nitrogen 12.0 mg/dl (6-23); Creatinine Clr Calc Pharmacy 74.0 ml/min; Glucose 119.0 mg/dl (70-99(Fasting))
--- NOTE | 2025-03-18 09:04 | Urology Progress Note ---
Date of Service March 18, 2025 Assessment & Plan (1) Gross hematuria: (2) Primary bladder malignant neoplasm: Plan Progressing appropriately Plan for Lino removal this morning Continue ambulation Discharge home after void Admission and Anticipated Discharge Date Admission Date: March 16, 2025 Subjective Subjectively doing okay Did not require manual or continuous bladder irrigation overnight Hemoglobin stable Creatinine stable Physical Exam Physical Exam: Comfortable appearing Abdomen soft Urine appropriateFoley in place Results & Data Vital Signs (Past 12 Hours) Vital Signs Temp Pulse Resp BP Pulse Ox O2 Del Method 03/18/25 07:01 37.1 C 74 16 138/68 95 Room Air 03/17/25 23:05 37.4 C 78 16 153/70 H 93 Room Air PG Care Time/CCT Total # of Minutes Spent Total Time Spent with Patient: Total time spent is greater than 50% in coordination of care (as documented) at patient's floor/unit and/or counseling patient: Coding Level of Care Code None Diagnoses Gross hematuria R31.0 Primary bladder malignant neoplasm C67.9
--- NOTE | 2025-03-18 11:41 | Discharge Summary ---
Discharge Summary Date of Service date of admission - March 16, 2025 date of discharge - March 18, 2025 Principal Dx & Hospital Course #1 = Principal Diagnosis (1) Gross hematuria: (2) Primary bladder malignant neoplasm: (3) S/P urological surgery: (4) Hypertension: Plan 74yo female with primary bladder malignancy, s/p TURBT on 03/15/[address] Bishop Espinoza ([facility]), osteoporosis, history of melanoma, GERD, anxiety, hypothyroidism, lumbar spinal stenosis, and hypertension. She presented to the ER several hours after discharge from her TURBT with severe gross hematuria. Upon admission a 3-way richmond was placed and continuous bladder irrigation (CBI) was initiated for the hematuria. #Gross hematuria in the setting of recent TURBT on 03/15/25 - -[facility] was consulted for management of her gross hematuria/clot formation -CBI was continued until 03/17/25 at which point CBI was stopped -following stoppage of CBI her hematuria was mild at most and she had no obstruction from any clots -richmond was successfully removed the AM of 03/18/25 and she was able to spontaneously void thereafter -fortunately drop in hemoglobin was mild while here - see below #acute blood loss anemia - -2nd to gross hematuria -admit hemoglobin was 11.5 -discharge hemoglobin was 10 #Hypertension - -lisinopril was held while here, then resumed upon discharge home #constipation - -due to recent surgery -ultimately did have a BM while hospitalized -advised use of combination of miralax with senna at home #Anxiety - -Continue duloxetine 60 mg every morning -Continue trazodone 50 mg p.o. at bedtime as needed #GERD- -cont PPI #Hypothyroidism - -Continue levothyroxine 100 mcg every morning -TSH 2.7 in January 2025 Notes For Next Care Provider Medication Changes From Visit pyridium prn Admission HPI Per Admitting Provider The patient is a 74-year-old female with a past medical history including primary bladder malignant neoplasm status post resection on 03/15/2025, osteoporosis, history of melanoma, GERD, anxiety, hypothyroidism, lumbar spinal stenosis, and hypertension. The patient presents to the emergency department with worsening gross hematuria. Patient underwent a transurethral bladder mass resection by urology on 03/15/2025. She reports that earlier in the afternoon she developed some blood-tinged urine, which continued to worsen throughout the evening. She later developed bladder spasms with discomfort of suprapubic region, and was getting up to urinate every 15 minutes. She became concerned and very nervous about frequency of urination, and a continuance of blood, and came to the emergency department for assessment. From the emergency department she received ceftriaxone 2 g IV, morphine 2 mg IV, Richmond catheter was placed, and she was started on continuous bladder irrigation. She was then referred for evaluation for admission. Discharge Exam gen - pleasant, NAD, looks well neck - no JVD mouth - MMM heart - RRR, s1 s2, no murmur lungs - CTA b/l abd - soft NT ND BS+; bladder not palpable ext - no edema, pulses 2+ b/l legs psych - a/o x 3 Discharge Plan Discharge Items Patient Disposition: Home - Self-Care Reason For Visit: GROSS HEMATURIA S/P BLADDER TUMOR RESECTION Discharge Diagnosis: 1. Bladder tumor with recent resection on 03/15/25 2. Hematuria (blood in urine) due to recent tumor removal / surgery - improved 3. Mild anemia - discharge hemoglobin level 10 4. Constipation - improved Activity: Resume your previous activity Lifting: Gradually increase as tolerated Bathing: No limitations Sexual Activity: Wait until after follow-up appointment Exercise/Sports: Gradually increase as tolerated Driving/Machine Use: Resume 1 day after discharge Non-emergency contact: Primary Care Provider and Urologist Call non-emergency contact if: you have any medication questions, your pain is concerning for you, you have a fever and your temperature is above 101 Follow-up/Referrals: Bishop Espinoza MD [Physician] - 03/24/25 (keep previously scheduled appointment ) Charlene Ruiz MD [Primary Care Provider] - Diet: Regular Addtl Attending Provider Instructions: Ms Pimentel, Please continue your previous diet, take all medications as prescribed and keep all follow-ups as scheduled. Please call our office at [phone] with any questions, concerns or need to reschedule appointments for any reason. Tips for your recovery at home: Once youre home, be as active as you comfortably can. We encourage you to walk around, but avoid exercise or heavy activities until youre feeling better. You can likely return to your normal routine in a couple days. If you go home with a catheter, please wash with soapy water and a fresh washcloth twice daily. We recommend mild bar soap like Dove. Pain or burning with urination is normal for a few days after your procedure while your bladder heals. Biopsy results will be discussed at your follow-up office visit. Call [facility] at [phone] promptly if you experience: Fever of 101F or greater Pain thats not controlled with medicine Trouble urinating or inability to urinate Dark, bloody urine for more than 12 hours For constipation - [id number] miralax 1 capful daily to maintain a soft bowel movement at least every other day. You can adjust the dose as needed depending on your bowel movements. For urinary pain/burning - phenazopyridine 100-200mg every 8 hours as needed. For additional pain control you can take tylenol 1000mg every 6-8 hours as needed, maximum 3000mg in 24 hours. -Please avoid aspirin, motrin, ibuprofen, aleve, naprosyn. Stay well-hydrated and focus on good nutrition during your recovery. It was our pleasure to care for you! -Rex Adkins, [facility] Pending Studies at Discharge: No Stand-Alone Forms: My [facility], Smoking Cessation Medications and DC Order Prescriptions: Continued lisinopril 20 mg tablet 20 mg PO QAM 90 Days Qty: 90 3RF levothyroxine 100 mcg tablet 100 mcg PO QAM Qty: 90 3RF omeprazole 10 mg capsule,delayed release(DR/EC) 10 mg PO QAM 90 Days Qty: 90 1RF cetirizine [Aller-Kirk] 10 mg tablet 10 mg PO DAILY PRN (Reason: allergies) calcium carbonate-vitamin D3 600 mg-5 mcg (200 unit) Tablet 1 tab PO QAM duloxetine 60 mg capsule,delayed release(DR/EC) 60 mg PO QAM trazodone 50 mg Tablet 50 mg PO HS PRN (Reason: Sleep) Changed phenazopyridine 100 mg tablet 100 - 200 mg PO Q8H PRN (Reason: urinary pain/burning) Qty: 20 0RF Discontinued ibuprofen 200 mg Tablet 800 mg PO Q6H PRN (Reason: Pain) sulfamethoxazole-trimethoprim [Bactrim DS] 800-160 mg tablet 1 tab PO BID Qty: 5 0RF No Action phenazopyridine [Pyridium] 100 mg tablet 100 mg PO TID Discharge Orders: Discharge Order (Routine); Ordered 03/18/25 Ordered By: Anton Londono Admission Data Admit Date/Time: 03/16/25 03:13 Attending Provider: Rex Adkins Admit Provider: James Rivera Primary Care Provider: Charlene Ruiz Other Providers: Tung Espinoza; Anton Londono Other Interventions: Discharge Summary Assessment (RN) Last Done: 03/18/25 10:38 Hospital Stay Data Consultations [facility] Procedures Performed continuous bladder irrigation Diagnostic Imagining Performed Renal Ultrasound 03/16/25 01:54 EXAM: US renal/blad retro comp CLINICAL HISTORY: PT HAD BLADDER MASSES REMOVED 03/15/25. NOW HAVING GROSS HEMATURIA. CURRENTLY HAS A THREE-WAY RICHMOND IN PLACE FOR GENTLE CONTINUOUS BLADDER IRRIGATION. TECHNIQUE: A renal ultrasound was performed using grayscale and color Doppler imaging. COMPARISON: No previous studies are available for comparison. FINDINGS: EXAM LIMITED BY INCREASED BODY HABITUS, BMI 37.9, AND INCREASED BOWEL GAS. Right Kidney: The right kidney measures 10.1 x 4.1 x 2.89 cm. vol 62.71 ml, limited views. No cyst, hydronephrosis, calculi, or masses were identified. Renal parenchymal echogenicity is normal. Cortical thickness: Within normal. The renal pelvis is within normal. On color Doppler, normal vascularity of the kidneys is noted. Left Kidney: The left kidney measures 10.92 x 5.95 x 4.4 cm. vol 149.61 ml, limited views. No cyst, hydronephrosis, calculi, or masses were identified. Renal parenchymal echogenicity is normal. Cortical thickness: Within normal. The renal pelvis is within normal. On color Doppler, normal vascularity of the kidneys is noted. Urinary bladder: Richmond's catheter is noted within the urinary bladder; echogenic material is seen surrounding it. possibly clot versus effect from three-way Richmond's irrigation. bladder measures 6.95 x 5.15 x 8.94 cm, BLADDER VOLUME AMOS APPROX 224mL . URINE JETS NONVISUALISED DURING EVALUATION. IMPRESSION: Richmond's catheter is noted within the urinary bladder, and echogenic material is seen surrounding it. possibly clot versus effect from three-way Richmond's irrigation. No obvious renal abnormality was found given the limitations of the study. Electronically signed by Osiel Mcnamara 03-16-2025 03:57 AM Bladder Ultrasound 03/17/25 09:18 US retro bladder ltd HISTORY: 74 years-old Female hematuria COMPARISON: Ultrasound 03/16/2025, CT abdomen and pelvis 02/27/2025 TECHNIQUE: Multiple real-time images of the urinary bladder were obtained assessing grayscale appearance FINDINGS: A Richmond catheter is noted. Echogenic material is noted within the dependent urinary bladder measuring up to approximately 9 cm in length. It is difficult to measure change from yesterday's study as the bladder was mostly decompressed on the prior ultrasound. IMPRESSION: Persistent probable blood products in the dependent urinary bladder. ACT 112: Negative or not required by law. The above report was generated using voice recognition software. It may contain grammatical, syntax or spelling errors. Electronically signed by: Noel Price M.D. 03/17/2025 2:27 PM Pending Results Patient Have Any Pending Studies at Discharge: No Discharge Instructions Given to Patient (Per Discharging Provider) Ms Pimentel, Please continue your previous diet, take all medications as prescribed and keep all follow-ups as scheduled. Please call our office at [phone] with any questions, concerns or need to reschedule appointments for any reason. Tips for your recovery at home: Once youre home, be as active as you comfortably can. We encourage you to walk around, but avoid exercise or heavy activities until youre feeling better. You can likely return to your normal routine in a couple days. If you go home with a catheter, please wash with soapy water and a fresh washcloth twice daily. We recommend mild bar soap like Dove. Pain or burning with urination is normal for a few days after your procedure while your bladder heals. Biopsy results will be discussed at your follow-up office visit. Call [facility] at [phone] promptly if you experience: Fever of 101F or greater Pain thats not controlled with medicine Trouble urinating or inability to urinate Dark, bloody urine for more than 12 hours For constipation - oapx-kru-gtzhoag miralax 1 capful daily to maintain a soft bowel movement at least every other day. You can adjust the dose as needed d epending on your bowel movements. For urinary pain/burning - phenazopyridine 100-200mg every 8 hours as needed. For additional pain control you can take tylenol 1000mg every 6-8 hours as needed, maximum 3000mg in 24 hours. -Please avoid aspirin, motrin, ibuprofen, aleve, naprosyn. Stay well-hydrated and focus on good nutrition during your recovery. It was our pleasure to care for you! -Rex Adkins, hospital medicine Total Time Total Time Spent Total Time Spent (In Minutes): 25 Coding Level of Care Code 20110 IN/OBS DISCH 30 MIN/LESS Diagnoses Gross hematuria R31.0 Primary bladder malignant neoplasm C67.9 S/P urological surgery Z98.890 Hypertension I10
== END 2025-03-18 12:58 | disposition home or self-care (01) | DRG 920 ==
LOC: ED 23:37 → SUATTDRO 03-16 03:13 → EDINP 03-16 03:13 → 3W 03-16 04:09